=== PATIENT | male | born 1955 | race African-American/Black ===

== ENCOUNTER 2016-12-10 20:50 | Emergency (ER) | payer BC ==
[~2016-12-10] VITALS: Ht 185.4 cm; Wt 106.0 kg
[2016-12-10] MEDS ORDERED: ASPIRIN 81 MG CHEW (CHILDREN'S ASA) PO ONE (21:20)
[2016-12-10] MEDS ORDERED: SODIUM CHLORIDE FLUSH 10 ML SYR IV PRN (21:20)
[2016-12-10] MEDS ORDERED: SODIUM CHLORIDE FLUSH 3 ML SYR IV PRN (21:20)
[2016-12-10] MEDS ORDERED: SODIUM CHLORIDE 250 ML IV PRN (21:20)
[2016-12-10 21:27] LABS: MEAN CORPUSCULAR HGB CONC 34.3 g/dL (31.0-37.0); MEAN PLATELET VOLUME 10.4 FL (6.0-9.5); PLATELET COUNT 184 10^3uL (150-450); WHITE BLOOD COUNT 6.35 10^3uL (4.0-11.0)
[2016-12-10 21:29] LABS: MEAN CORPUSCULAR HEMOGLOBIN 21.5 PG (26.0-34.0); MEAN CORPUSCULAR VOLUME 63 FL (80-100)
[2016-12-10 21:34] LABS: ALBUMIN 4.7 g/dL (3.4-5.0); ANION GAP 16.4 MEQ/L (3-15); CALCULATED IONIZED CALCIUM 3.8 mg/dL (3.8-4.6); TOTAL PROTEIN 8.4 g/dL (6.4-8.5)
--- NOTE | 2016-12-10 21:48 | NUR ---
lab called- ck= [phone]. made aware
--- NOTE | 2016-12-10 21:49 | NUR ---
PT DENIES PAIN AT THIS TIME. 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 AND SON AT BEDSIDE. PT AWAITING TEST RESULTS- WILL CONTINUE TO MONITOR.
[2016-12-10 21:53] LABS: SEGMENTED NEUTROPHILS % 60 % (51-67)
[2016-12-10 21:54] LABS: BAND NEUTROPHILS % 2 % (0-6); EOSINOPHILS % 0 % (0-4); LYMPHOCYTES # 1.1 #; MICROCYTOSIS MODERATE; MONOCYTES # 1.2 #; MONOCYTES % 20 % (3-11); RBC MORPH SEE REFERENCE (NORMAL); TOTAL CELLS COUNTED 100
[2016-12-10 22:37] LABS: AMYLASE* 96 U/L (25-115); LIPASE* 74 U/L (23-300)
--- NOTE | 2016-12-10 23:16 | NUR ---
PLAN FOR TRANSFER TO [facility]. CALLED THEIR JOB PLACEMENT OFFICER- SHE WILL CALL BACK WITH A BED.
[2016-12-10] MEDS ORDERED: meTOproloL SUCCINATE 50 MG (TOPROL XL) TAB PO SCH (23:35)
[2016-12-10] MEDS ORDERED: GUAIFENESIN/CODEINE 100MG-10MG/5ML SYRUP (ROBITUSSIN AC) 5 ML UDC PO ONE (23:40)
[2016-12-10 23:52] VITALS: BP 160/116
--- NOTE | 2016-12-11 | NUR ---
CALLED EMS TO MAKE THEM AWARE
== END 2016-12-11 00:14 | disposition short-term general hospital (02) ==
LOC: ED 20:52
DX: R07.2 Precordial pain (principal)
CPT/HCPCS: 36415; 71010; 80053; 82150; 82550; 82553; 83690; 84484; 85025; 85379; 85610; 85730; 93005; 99285; J7050; 93010

== ENCOUNTER → 2016-12-10 | Outpatient (CLI) | payer BC | LOC: EMS 20:55 | PROVIDERS: ATTEND Family Medicine | DX: R07.89 Other chest pain (principal); R06.02 Shortness of breath ==

== ENCOUNTER → 2016-12-11 | Outpatient (CLI) | payer BC | LOC: EMS 00:16 | PROVIDERS: ATTEND Family Medicine | DX: R07.89 Other chest pain (principal) ==